=== PATIENT | female | born 1980 | race Caucasian/White ===

== ENCOUNTER 2018-06-11 18:57 | Emergency (ER) | payer OTHER ==
[2018-06-11 19:48] LABS: KETONE, URINE AUTO RFX NEGATIVE (NEGATIVE); LEUKOCYTE ESTERASE UR AUTO RFX NEGATIVE (NEGATIVE); NITRITE, URINE AUTO RFX NEGATIVE (NEGATIVE); RBC, URINE AUTO RFX 2 /HPF (0-3); SPECIFIC GRAVITY UR AUTO RFX 1.003 (1.002-1.035); SQUAM EPITHELIAL CELL UR AURFX 1 /HPF (0-6); WBC, URINE AUTO RFX 0 /HPF (0-3)
== END 2018-06-11 21:45 | disposition home or self-care (01) ==
LOC: M ED 18:57
DX: R10.2 Pelvic and perineal pain (principal); M54.9 Dorsalgia, unspecified; Z97.5 Presence of (intrauterine) contraceptive device; Z88.1 Allergy status to other antibiotic agents; Z91.018 Allergy to other foods; Z79.899 Other long term (current) drug therapy
CPT/HCPCS: 76856